=== PATIENT | female | born 1990 | race African-American/Black ===

== ENCOUNTER 2018-09-03 15:47 | Emergency (ER) | payer BC ==
[~2018-09-03] VITALS: Ht 157.5 cm; Wt 63.5 kg
[~2018-09-03 15:47] MED LIST: AMOXICILLIN 25250 M1 PO; APAP500 PO; COLACE 100 MG100 MG PO; DARVOCET-N 1001 EACH PO; DERMOPLAST SPRA56 ML; FLEXERIL PO; HYDROCORTISONE30 G9 RE; IBUPROFEN 600600 M1 PO; IBUPROFEN 800800 M1 PO; IRON325 PO; LANOLIN56 GM; NOHOMEMEDICATIONS; NORCO 5-325 TA1 EACH PO; PRENATAL; PROVENTIL HFA6.7 G1 INH; TESSALON PERLE100 MG PO; TUCKS MEDICATE1 EAC1; VICODIN 5-5001 EACH PO
[2018-09-03 16:28] LABS: URINE BILIRUBIN NEGATIVE (Negative); URINE BLOOD 3+ (Negative); URINE CLARITY CLEAR; URINE COLOR YELLOW; URINE GLUCOSE-RANDOM* NEGATIVE (Negative); URINE KETONES NEGATIVE (Negative); URINE LEUKOCYTES-REFLEX NEGATIVE (Negative); URINE NITRITE-REFLEX NEGATIVE (Negative); URINE PROTEIN (DIPSTICK) NEGATIVE (Negative); URINE UROBILINOGEN 0.2 E.U./dl (0.2-1.0)
[2018-09-03] MEDS ORDERED: NOHOMEMEDICATIONS (16:28)
[2018-09-03 16:35] LABS: BACTERIA-REFLEX 1-9 Few /HPF (None Seen); CASTS None Seen /LPF (None Seen); CRYSTALS None Seen /LPF (None Seen); SQUAMOUS 0-3 Few /LPF (0-3); URINE RBC 3-10 Few /HPF (0-2); URINE WBC-REFLEX 0-5 Rare /HPF (0-5)
[2018-09-03 16:37] LABS: ABSOLUTE NEUTROPHILS 3.3 thou/uL (1.4-8.2); EOSINOPHILS 1.3 % (0.0-3.0); HEMATOCRIT 42.4 % (37.0-47.0); HEMOGLOBIN 14.6 gm/dL (12.0-15.0); LYMPHOCYTES 33.4 % (24.0-44.0); MCH 31.8 pg (26.0-34.0); MCHC 34.3 g/dL (28.0-37.0); MCV 92.7 fL (80.0-100.0); PLATELET COUNT 336 thou/uL (150-400); POLYS 53.3 % (36.0-66.0); RBC 4.58 mil/uL (4.20-5.00); RDW 13.8 % (10.5-14.5); WBC 6.3 thou/uL (4.0-11.0)
[2018-09-03 16:37] LABS: AMP/METHAMP Negative (Negative); BARBITURATES Negative (Negative); BENZODIAZEPINES Negative (Negative); COCAINE Negative (Negative); METHADONE Negative (Negative); OPIATES Negative (Negative); PCP Negative (Negative)
[2018-09-03 16:51] LABS: CALCIUM 9.3 mg/dL (8.5-10.1); CREATININE 0.8 mg/dL (0.6-1.0); POTASSIUM 3.7 mmol/L (3.5-5.1)
[2018-09-03 17:12] VITALS: BP 143/91
== END 2018-09-03 17:14 | disposition home or self-care (01) ==
LOC: ER 15:47
PROVIDERS: Emergency Medicine
DX: R53.81 Other malaise (principal); R53.83 Other fatigue; E86.0 Dehydration

== ENCOUNTER 2018-09-11 12:39 | Emergency (ER) | payer BC ==
[~2018-09-11] VITALS: Ht 157.5 cm; Wt 63.5 kg
[2018-09-11 13:10] LABS: URINE BILIRUBIN NEGATIVE (Negative); URINE BLOOD 3+ (Negative); URINE COLOR YELLOW; URINE GLUCOSE-RANDOM* NEGATIVE (Negative); URINE KETONES NEGATIVE (Negative); URINE NITRITE-REFLEX NEGATIVE (Negative); URINE PROTEIN (DIPSTICK) NEGATIVE (Negative); URINE UROBILINOGEN 0.2 E.U./dl (0.2-1.0)
[2018-09-11 13:13] LABS: URINE CLARITY SL HAZY; URINE LEUKOCYTES-REFLEX 2+ (Negative)
[2018-09-11 13:22] LABS: BACTERIA-REFLEX None Seen /HPF (None Seen); CASTS None Seen /LPF (None Seen); CRYSTALS None Seen /LPF (None Seen); SQUAMOUS 4-10 Moderate /LPF (0-3); URINE RBC >20 Many /HPF (0-2); URINE WBC-REFLEX 6-15 Few /HPF (0-5)
[2018-09-11 15:02] VITALS: BP 122/64
== END 2018-09-11 15:05 | disposition home or self-care (01) ==
LOC: ER 12:39
PROVIDERS: Physician Assistant
DX: R31.9 Hematuria, unspecified (principal); L29.3 Anogenital pruritus, unspecified; R10.30 Lower abdominal pain, unspecified

== ENCOUNTER 2018-09-23 10:09 | Emergency (ER) | payer BC ==
[~2018-09-23] VITALS: Ht 157.5 cm; Wt 63.5 kg
[2018-09-23 11:04] VITALS: BP 164/99
== END 2018-09-23 10:45 | disposition home or self-care (01) ==
LOC: ER 10:09
DX: R03.0 Elevated blood-pressure reading, without diagnosis of hypertension (principal)

== ENCOUNTER 2019-06-09 09:40 | Emergency (ER) | payer OTHER ==
[~2019-06-09] VITALS: Ht 157.5 cm; Wt 70.3 kg
[2019-06-09] MEDS ORDERED: KEFLEX500 M1 PO (09:50)
[2019-06-09] MEDS ORDERED: NORCO 5-325 TA1 EAC1 PO (09:50)
[2019-06-09 10:24] LABS: URINE BILIRUBIN NEGATIVE (Negative); URINE BLOOD 3+ (Negative); URINE CLARITY CLOUDY; URINE COLOR YELLOW; URINE GLUCOSE-RANDOM* NEGATIVE (Negative); URINE KETONES NEGATIVE (Negative); URINE LEUKOCYTES-REFLEX 1+ (Negative); URINE NITRITE-REFLEX NEGATIVE (Negative); URINE PROTEIN (DIPSTICK) NEGATIVE (Negative); URINE SPECIFIC GRAVITY 1.015 (1.005-1.035); URINE UROBILINOGEN 0.2 E.U./dl (0.2-1.0)
[2019-06-09 10:31] LABS: SQUAMOUS >10 Many /LPF (0-3)
[2019-06-09 10:32] LABS: CASTS None Seen /LPF (None Seen); CRYSTALS None Seen /LPF (None Seen); URINE RBC 3-10 Few /HPF (0-2); URINE WBC-REFLEX >25 Many /HPF (0-5)
[2019-06-09 10:55] LABS: ABSOLUTE NEUTROPHILS 2.9 thou/uL (1.4-8.2); BASOPHILS 1.4 % (0.0-2.0); EOSINOPHILS 1.4 % (0.0-3.0); HEMATOCRIT 38.9 % (37.0-47.0); HEMOGLOBIN 12.9 gm/dL (12.0-15.0); LYMPHOCYTES 28.4 % (24.0-44.0); MCH 31.1 pg (26.0-34.0); MCHC 33.1 g/dL (28.0-37.0); MCV 93.9 fL (80.0-100.0); MONOCYTES 9.9 % (1.0-8.0); PLATELET COUNT 375 thou/uL (150-400); POLYS 58.9 % (36.0-66.0); RBC 4.14 mil/uL (4.20-5.00); RDW 13.5 % (10.5-14.5)
[2019-06-09 10:58] LABS: CALCIUM 9.4 mg/dL (8.5-10.1); CREATININE 0.9 mg/dL (0.6-1.0)
[2019-06-09 11:26] VITALS: BP 129/92
[2019-06-09 13:36] LABS: POTASSIUM 3.9 mmol/L (3.5-5.1)
== END 2019-06-09 12:27 | disposition home or self-care (01) ==
LOC: ER 09:40
PROVIDERS: Emergency Medicine Emergency Medical Services
DX: N39.0 Urinary tract infection, site not specified (principal); N92.6 Irregular menstruation, unspecified; Z98.890 Other specified postprocedural states